=== PATIENT | male | born 1970 | race Caucasian/White ===

== ENCOUNTER → 2023-12-29 09:42 | Outpatient (BNVA) | payer SELFPAY | PROVIDERS: PCP Family Medicine; Visit Provider Family Medicine | DX: Z00.00 Encounter for general adult medical examination without abnormal findings (principal); R19.00 Intra-abdominal and pelvic swelling, mass and lump, unspecified site; Z87.448 Personal history of other diseases of urinary system; E03.9 Hypothyroidism, unspecified | CPT/HCPCS: 80053; 80061; 82607; 83735; 84443; 85025; 86140 ==